=== PATIENT | male | born 1995 | race African-American/Black ===

== ENCOUNTER 2021-09-25 19:02 | Inpatient (IN) | payer SELFPAY ==
[2021-09-25] MEDS ORDERED: Vancomycin 1 GM/200 ML BAG ONE (19:21)
[2021-09-25] MEDS ORDERED: Acetaminophen 500 MG TAB ONE (19:21)
[2021-09-25] MEDS ORDERED: Piperacillin/Tazobactam 3.375 GM VIAL ONE (19:21)
[2021-09-25] MEDS ORDERED: Morphine 4 MG/ML VIAL ONE (19:23)
[2021-09-25 20:01] LABS: Hemoglobin 9.5 g/dL (14.0-18.0); Mean Corpuscular HGB CONC 30.9 g/dL (32.0-36.0); Mean Corpuscular Hemoglobin 22.5 pg (27.0-31.0); Mean Corpuscular Volume 72.7 fL (78.0-98.0); Mean Platelet Volume 5.7 fL (7.4-10.4); Platelet Count 887 thou/uL (130-400); Red Blood Cell (RBC) Count 4.24 mill/uL (4.70-6.10); White Blood Cell (WBC) Count 17.5 thou/uL (4.8-10.8)
[2021-09-25 20:02] LABS: Bilirubin Negative (Negative); Blood, Urine Negative (Negative); Clarity Clear (Clear); Glucose, Urine (Dipstick) Normal (Negative); Ketone, Urine Negative (Negative); Leukocyte Negative Leu/uL (Negative); Nitrite Negative (Negative); Protein, Urine (Dipstick) Negative (Neg-Trace); Specific Gravity, Urine 1.011 (1.002-1.036); Urobilinogen Normal mg/dL (Less than 2)
[2021-09-25 20:11] LABS: Amphetamine Not Detected (NotDetected); Barbiturates Screen Not Detected (NotDetected); Benzodiazepine Screen Not Detected (NotDetected); Cocaine Metabolite Screen Not Detected (NotDetected); Methadone Not Detected (NotDetected); Methamphetamine Not Detected (NotDetected); Opiate Screen Detected (NotDetected); Oxycodone Screen Not Detected (NotDetected); Phencyclidine (PCP) Not Detected (NotDetected); THC/Cannabinoid Screen Not Detected (NotDetected); Tricyclic Screen Not Detected (NotDetected)
[2021-09-25 20:13] LABS: #Eosinphils 0.4 thou/uL (0.0-0.7); #Lymphocytes 1.8 thou/uL (1.20-3.40); #Monocytes 1.3 thou/uL (0.11-0.59); %Basophils 0.1 % (0.0-1.0); %Lymphocytes 10.4 % (21.0-51.0); %Monocytes 7.3 % (0.0-10.0); %Neutrophils 80.2 % (42.0-75.0); MDiff Complete? YES; Microcytosis SLIGHT = 6-15 cells (100X) (0-5/hpf); Platelet Morphology Comment Appears Increased; Target Cells SLIGHT = 2-5 cells (100X) (0-1/hpf)
[2021-09-25 20:21] LABS: ALT (SGPT) 10 U/L (8-55); AST (SGOT) 18 U/L (5-34); Alkaline Phosphatase 138 U/L (40-110); Anion Gap 15 mmol/L (10-20); BUN (Urea Nitrogen) 6 mg/dL (8.9-20.6); Bilirubin, Total 0.3 mg/dL (0.2-1.2); Calc. Creatinine Clearance 0 mL/min (70-130); Calcium 9.2 mg/dL (7.8-10.44); Carbon Dioxide 26 mmol/L (22-29); Chloride 97 mmol/L (98-107); Glucose 83 mg/dL (70-105); Potassium 3.8 mmol/L (3.5-5.1); Sodium 134 mmol/L (136-145)
[2021-09-25] MEDS ORDERED: Acetaminophen 325 MG TAB PO PRN (23:30)
[2021-09-25] MEDS ORDERED: Ondansetron ODT 4 MG TAB SL PRN (23:30)
[2021-09-25] MEDS ORDERED: Ondansetron PF 4 MG/2 ML Vial IVP PRN (23:30)
[2021-09-25 23:45] VITALS: BMI 19.1
[2021-09-26] MEDS: Piperacillin/Tazobactam 3.375 GM in Sodium Chloride 0.9% 100 ML IVPB SCH ×3 (00:54→17:18)
[2021-09-26] MEDS: HYDROcodone/Acetaminophen 7.5/325 mg Tablet PO PRN ×4 (00:54→20:24)
[2021-09-26] MEDS: Senokot S 8.6-50 MG TAB PO PRN (01:03)
[2021-09-26] MEDS ORDERED: Vancomycin 1 GM in Premix Bag 1 BAG IVPB SCH (04:00)
[2021-09-26] MEDS ORDERED: Ondansetron PF 4 MG/2 ML Vial IVP PRN (04:39)
[2021-09-26] MEDS ORDERED: Acetaminophen 325 MG TAB PO PRN (04:39)
[2021-09-26] MEDS: Vancomycin 1 GM in Premix Bag 1 BAG IVPB SCH ×3 (05:00→20:27)
[2021-09-26] MEDS: Sodium Chloride 0.9% 1,000 ML IV SCH (05:05)
[2021-09-26 05:35] LABS: #Basophils 0.1 thou/uL (0.0-0.2); #Eosinphils 0.6 thou/uL (0.0-0.7); #Lymphocytes 1.9 thou/uL (1.20-3.40); #Monocytes 1.2 thou/uL (0.11-0.59); #Neutrophils 11.8 thou/uL (1.40-6.50); %Basophils 0.4 % (0.0-1.0); %Eosinophils 3.6 % (0.0-10.0); %Lymphocytes 12.3 % (21.0-51.0); %Monocytes 7.6 % (0.0-10.0); %Neutrophils 76.1 % (42.0-75.0); Hemoglobin 8.4 g/dL (14.0-18.0); Mean Corpuscular HGB CONC 29.9 g/dL (32.0-36.0); Mean Corpuscular Volume 73.4 fL (78.0-98.0); Mean Platelet Volume 5.7 fL (7.4-10.4); Platelet Count 794 thou/uL (130-400); Red Blood Cell (RBC) Count 3.84 mill/uL (4.70-6.10); White Blood Cell (WBC) Count 15.6 thou/uL (4.8-10.8)
[2021-09-26 05:52] LABS: Iron 14 ug/dL (65-175); Iron Binding Capacity, Total 145 mcg/dL (261-462)
[2021-09-26 06:04] LABS: Anion Gap 13 mmol/L (10-20); BUN (Urea Nitrogen) 6 mg/dL (8.9-20.6); Calc. Creatinine Clearance 132 mL/min (70-130); Calcium 8.7 mg/dL (7.8-10.44); Carbon Dioxide 22 mmol/L (22-29); Chloride 103 mmol/L (98-107); Glucose 102 mg/dL (70-105); Iron 9 ug/dL (65-175); Iron Binding Capacity, Total 141 mcg/dL (261-462); Potassium 3.9 mmol/L (3.5-5.1); Sodium 134 mmol/L (136-145)
[2021-09-26] MEDS: Morphine 4 MG/ML VIAL SLOW IVP PRN ×2 (07:37→17:28)
[2021-09-26] MEDS: Enoxaparin Sodium 40 MG/0.4 ML SYRINGE SC SCH ×2 (09:28→17:18)
[2021-09-26] MEDS ORDERED: Morphine 4 MG/ML VIAL SLOW IVP SCH (11:45)
[2021-09-26 11:51] LABS: SARS-CoV-2 PCR by NAA Not Detected (NotDetected)
[2021-09-26 20:19] LABS: Vancomycin, Trough 16.3 ug/mL
[2021-09-27] MEDS: Senokot S 8.6-50 MG TAB PO PRN ×2 (00:31→21:25)
[2021-09-27] MEDS: HYDROcodone/Acetaminophen 7.5/325 mg Tablet PO PRN ×2 (00:31→06:22)
[2021-09-27] MEDS: Piperacillin/Tazobactam 3.375 GM in Sodium Chloride 0.9% 100 ML IVPB SCH ×3 (00:33→18:14)
[2021-09-27] MEDS: Vancomycin 1 GM in Premix Bag 1 BAG IVPB SCH ×4 (06:12→21:23)
[2021-09-27 06:21] LABS: #Eosinphils 0.6 thou/uL (0.0-0.7); #Lymphocytes 2.2 thou/uL (1.20-3.40); #Monocytes 1.1 thou/uL (0.11-0.59); #Neutrophils 11.3 thou/uL (1.40-6.50); %Basophils 0.1 % (0.0-1.0); %Eosinophils 3.7 % (0.0-10.0); %Lymphocytes 14.4 % (21.0-51.0); %Neutrophils 74.9 % (42.0-75.0); Hemoglobin 7.6 g/dL (14.0-18.0); Mean Corpuscular HGB CONC 30.2 g/dL (32.0-36.0); Mean Corpuscular Hemoglobin 22.5 pg (27.0-31.0); Mean Corpuscular Volume 74.4 fL (78.0-98.0); Mean Platelet Volume 5.7 fL (7.4-10.4); Platelet Count 767 thou/uL (130-400); RBC Distribution Width 16.8 % (11.5-14.5); Red Blood Cell (RBC) Count 3.37 mill/uL (4.70-6.10); White Blood Cell (WBC) Count 15.1 thou/uL (4.8-10.8)
[2021-09-27] MEDS: Sodium Chloride 0.9% 1,000 ML IV SCH ×3 (06:25→21:23)
[2021-09-27 06:37] LABS: Anion Gap 11 mmol/L (10-20); BUN (Urea Nitrogen) 4 mg/dL (8.9-20.6); Calc. Creatinine Clearance 122 mL/min (70-130); Calcium 8.4 mg/dL (7.8-10.44); Carbon Dioxide 26 mmol/L (22-29); Chloride 101 mmol/L (98-107); Glucose 183 mg/dL (70-105); Potassium 3.2 mmol/L (3.5-5.1); Sodium 135 mmol/L (136-145)
[2021-09-27 10:09] LABS: Vancomycin, Trough 34.3 ug/mL
[2021-09-27] MEDS ORDERED: hydrALAZINE 20 MG/ML VIAL SLOW IVP PRN (11:42)
[2021-09-27] MEDS ORDERED: Calcium Carbonate 500 MG ChewTAB PO PRN (11:42)
[2021-09-27] MEDS ORDERED: GUAIFENESIN SF SOLN 200 MG/10 ML UDCUP PO PRN (11:42)
[2021-09-27] MEDS ORDERED: Zolpidem Tartrate 5 MG TAB PO PRN (11:42)
[2021-09-27] MEDS ORDERED: Loperamide HCl 2 MG CAP PO PRN (11:42)
[2021-09-27] MEDS ORDERED: Loratadine 10 MG TAB PO PRN (11:42)
[2021-09-27] MEDS: HYDROcodone/Acetaminophen 5/325 mg Tablet PO PRN ×2 (12:05→19:21)
[2021-09-27] MEDS: Morphine 4 MG/ML VIAL SLOW IVP PRN ×2 (12:11→17:15)
[2021-09-27] MEDS ORDERED: Piperacillin/Tazobactam 3.375 GM in Sodium Chloride 0.9% 100 ML IVPB SCH (17:15)
[2021-09-27] MEDS: Enoxaparin Sodium 40 MG/0.4 ML SYRINGE SC SCH (17:19)
[2021-09-27 20:54] LABS: Vancomycin, Trough 19.8 ug/mL
[2021-09-28] MEDS: HYDROcodone/Acetaminophen 10/325 mg Tablet PO PRN ×4 (00:25→18:23)
[2021-09-28] MEDS: Piperacillin/Tazobactam 3.375 GM in Sodium Chloride 0.9% 100 ML IVPB SCH ×3 (00:27→18:08)
[2021-09-28] MEDS: Vancomycin 1 GM in Premix Bag 1 BAG IVPB SCH ×3 (05:19→21:52)
[2021-09-28] MEDS: Morphine 4 MG/ML VIAL SLOW IVP PRN (15:28)
[2021-09-28] MEDS: Enoxaparin Sodium 40 MG/0.4 ML SYRINGE SC SCH (18:14)
[2021-09-28] MEDS: Senokot S 8.6-50 MG TAB PO PRN (18:23)
[2021-09-28 20:16] LABS: #Eosinphils 0.7 thou/uL (0.0-0.7); #Lymphocytes 2.2 thou/uL (1.20-3.40); #Monocytes 0.8 thou/uL (0.11-0.59); %Basophils 0.3 % (0.0-1.0); %Eosinophils 4.3 % (0.0-10.0); %Lymphocytes 14.1 % (21.0-51.0); %Monocytes 4.9 % (0.0-10.0); %Neutrophils 76.4 % (42.0-75.0); Hemoglobin 8.1 g/dL (14.0-18.0); Mean Corpuscular HGB CONC 29.3 g/dL (32.0-36.0); Mean Corpuscular Hemoglobin 22.3 pg (27.0-31.0); Mean Corpuscular Volume 76.1 fL (78.0-98.0); Mean Platelet Volume 5.4 fL (7.4-10.4); Platelet Count 814 thou/uL (130-400); Red Blood Cell (RBC) Count 3.63 mill/uL (4.70-6.10); White Blood Cell (WBC) Count 15.7 thou/uL (4.8-10.8)
[2021-09-28 20:34] LABS: Anion Gap 12 mmol/L (10-20); BUN (Urea Nitrogen) 5 mg/dL (8.9-20.6); CRP (Inflammatory) 18.84 mg/dL (= or < 0.5); Calc. Creatinine Clearance 110 mL/min (70-130); Carbon Dioxide 27 mmol/L (22-29); Chloride 102 mmol/L (98-107); Glucose 114 mg/dL (70-105); Potassium 3.5 mmol/L (3.5-5.1); Sodium 137 mmol/L (136-145)
[2021-09-29] MEDS: Piperacillin/Tazobactam 3.375 GM in Sodium Chloride 0.9% 100 ML IVPB SCH ×4 (00:50→23:59)
[2021-09-29 05:27] LABS: Anion Gap 11 mmol/L (10-20); BUN (Urea Nitrogen) 5 mg/dL (8.9-20.6); Calc. Creatinine Clearance 126 mL/min (70-130); Calcium 8.6 mg/dL (7.8-10.44); Carbon Dioxide 26 mmol/L (22-29); Chloride 103 mmol/L (98-107); Glucose 125 mg/dL (70-105); Potassium 3.4 mmol/L (3.5-5.1); Sodium 137 mmol/L (136-145)
[2021-09-29 05:29] LABS: Vancomycin, Random 16.2 ug/mL (See Comment)
[2021-09-29] MEDS: Vancomycin 1 GM in Premix Bag 1 BAG IVPB SCH ×3 (05:56→20:16)
[2021-09-29 06:49] LABS: #Eosinphils 0.7 thou/uL (0.0-0.7); #Lymphocytes 2.1 thou/uL (1.20-3.40); %Basophils 0.2 % (0.0-1.0); %Eosinophils 4.6 % (0.0-10.0); %Lymphocytes 13.1 % (21.0-51.0); %Monocytes 6.3 % (0.0-10.0); %Neutrophils 75.9 % (42.0-75.0); Hemoglobin 7.9 g/dL (14.0-18.0); Mean Corpuscular HGB CONC 28.8 g/dL (32.0-36.0); Mean Corpuscular Volume 76.3 fL (78.0-98.0); Mean Platelet Volume 5.5 fL (7.4-10.4); Platelet Count 812 thou/uL (130-400); RBC Distribution Width 17.3 % (11.5-14.5); Red Blood Cell (RBC) Count 3.59 mill/uL (4.70-6.10); White Blood Cell (WBC) Count 15.8 thou/uL (4.8-10.8)
[2021-09-29] MEDS ORDERED: Potassium Chloride 20 MEQ TAB PO SCH (07:30)
[2021-09-29 07:58] LABS: MDiff Complete? YES; Microcytosis SLIGHT = 6-15 cells (100X) (0-5/hpf); Platelet Morphology Comment Appears Increased; Polychromasia SLIGHT = 2-3 cells (100X) (0-2/hpf)
[2021-09-29] MEDS: HYDROcodone/Acetaminophen 10/325 mg Tablet PO PRN (12:40)
[2021-09-29] MEDS: Senokot S 8.6-50 MG TAB PO PRN ×2 (12:41→20:23)
[2021-09-29 14:15] LABS: Cytoplasmic (C-ANCA) <1:20 titer (Neg:<1:20); Myeloperoxidase AutoAbs <9.0 U/mL (0.0-9.0); Perinuclear (P-ANCA) <1:20 titer (Neg:<1:20); Proteinase-3 AutoAbs Less than 3.5 U/mL (0.0-3.5)
[2021-09-29] MEDS: HYDROcodone/Acetaminophen 5/325 mg Tablet PO PRN (16:14)
[2021-09-29] MEDS: Enoxaparin Sodium 40 MG/0.4 ML SYRINGE SC SCH (16:31)
[2021-09-30 04:31] LABS: Vancomycin, Trough 14.4 ug/mL
[2021-09-30] MEDS: Vancomycin 1 GM in Premix Bag 1 BAG IVPB SCH (05:59)
[2021-09-30] MEDS: metroNIDAZOLE 500 MG TAB PO SCH ×3 (09:11→21:41)
[2021-09-30] MEDS: Saccharomyces boulardii 250 MG CAP PO SCH (09:11)
[2021-09-30] MEDS: Clindamycin/D5W 600 MG in Premix Bag 1 BAG IVPB SCH ×2 (14:12→21:41)
[2021-09-30] MEDS: Morphine 4 MG/ML VIAL SLOW IVP PRN (14:16)
[2021-09-30] MEDS: Enoxaparin Sodium 40 MG/0.4 ML SYRINGE SC SCH (16:21)
[2021-09-30] MEDS: Senokot S 8.6-50 MG TAB PO PRN (21:46)
[2021-10-01] MEDS: Clindamycin/D5W 600 MG in Premix Bag 1 BAG IVPB SCH (05:30)
[2021-10-01] MEDS ORDERED: Potassium Chloride 20 MEQ TAB PO SCH (05:45)
[2021-10-01 05:52] LABS: Anion Gap 8 mmol/L (10-20); BUN (Urea Nitrogen) 5 mg/dL (8.9-20.6); CRP (Inflammatory) 14.02 mg/dL (= or < 0.5); Calc. Creatinine Clearance 136 mL/min (70-130); Calcium 9.2 mg/dL (7.8-10.44); Carbon Dioxide 35 mmol/L (22-29); Chloride 98 mmol/L (98-107); Glucose 99 mg/dL (70-105); Potassium 3.8 mmol/L (3.5-5.1); Sodium 137 mmol/L (136-145)
[2021-10-01 07:00] LABS: #Basophils 0.1 thou/uL (0.0-0.2); #Eosinphils 0.6 thou/uL (0.0-0.7); #Neutrophils 9.6 thou/uL (1.40-6.50); %Basophils 0.4 % (0.0-1.0); %Eosinophils 4.4 % (0.0-10.0); %Lymphocytes 15.3 % (21.0-51.0); %Monocytes 7.4 % (0.0-10.0); %Neutrophils 72.5 % (42.0-75.0); Hemoglobin 8.7 g/dL (14.0-18.0); Mean Corpuscular HGB CONC 29.8 g/dL (32.0-36.0); Mean Corpuscular Hemoglobin 22.7 pg (27.0-31.0); Mean Corpuscular Volume 76.3 fL (78.0-98.0); Mean Platelet Volume 5.5 fL (7.4-10.4); Platelet Count 891 thou/uL (130-400); RBC Distribution Width 17.5 % (11.5-14.5); Red Blood Cell (RBC) Count 3.82 mill/uL (4.70-6.10); White Blood Cell (WBC) Count 13.3 thou/uL (4.8-10.8)
[2021-10-01 09:31] VITALS: BP 95/59; TEMP 98.3
[2021-10-01] MEDS: Saccharomyces boulardii 250 MG CAP PO SCH (09:35)
[2021-10-01] MEDS: metroNIDAZOLE 500 MG TAB PO SCH (09:35)
== END 2021-10-01 13:28 | disposition home or self-care (01) | DRG 872 ==
LOC: ERS 19:02 → MSONC 21:07
PROVIDERS: ADMIT Internal Medicine; ATTEND Internal Medicine
DX: A41.9 Sepsis, unspecified organism (principal); D50.9 Iron deficiency anemia, unspecified; Z20.822 Contact with and (suspected) exposure to COVID-19; L98.9 Disorder of the skin and subcutaneous tissue, unspecified; F17.210 Nicotine dependence, cigarettes, uncomplicated; L98.499 Non-pressure chronic ulcer of skin of other sites with unspecified severity; L73.2 Hidradenitis suppurativa; E87.6 Hypokalemia; Z90.89 Acquired absence of other organs
CPT/HCPCS: 36415; 72193; 80048; 80053; 80202; 80306; 81003; 82728; 83520; 83540; 83550; 83605; 85025; 86037; 86140; 87040; 87070; 87205; 96365; 96375; J1650; J2270; J2543; J3370; J3490; J7050; U0003; U0005

== ENCOUNTER 2022-02-24 18:02 | Emergency (ER) | payer BC, OTHER ==
[2022-02-24] MEDS ORDERED: HYDROcodone/Acetaminophen 5/325 mg Tablet ONE (18:56)
== END 2022-02-24 19:36 | disposition home or self-care (01) ==
LOC: ERS 18:02
DX: L73.2 Hidradenitis suppurativa (principal); F17.210 Nicotine dependence, cigarettes, uncomplicated
CPT/HCPCS: 99283

== ENCOUNTER 2022-03-09 16:11 | Inpatient (IN) | payer OTHER ==
[~2022-03-09 16:11] MED LIST: Iopamidol-370 76% 500 ML 1 ML ONE
[2022-03-09] MEDS ORDERED: GoLYTELY 4,000 ml Bottle PO SCH (17:15)
[2022-03-09 17:57] LABS: #Eosinphils 0.2 thou/uL (0.0-0.7); #Lymphocytes 1.8 thou/uL (1.20-3.40); #Monocytes 0.8 thou/uL (0.11-0.59); #Neutrophils 9.6 thou/uL (1.40-6.50); %Basophils 0.1 % (0.0-1.0); %Lymphocytes 14.3 % (21.0-51.0); %Monocytes 6.6 % (0.0-10.0); Hemoglobin 9.8 g/dL (14.0-18.0); Mean Corpuscular HGB CONC 29.4 g/dL (32.0-36.0); Mean Corpuscular Hemoglobin 21.6 pg (27.0-31.0); Mean Corpuscular Volume 73.4 fL (78.0-98.0); Platelet Count 833 thou/uL (130-400); RBC Distribution Width 16.8 % (11.5-14.5); Red Blood Cell (RBC) Count 4.54 mill/uL (4.70-6.10); White Blood Cell (WBC) Count 12.5 thou/uL (4.8-10.8)
[2022-03-09 18:13] LABS: Anisocytosis SLIGHT = 6-15 cells (100X) (0-5/hpf); Hypochromia SLIGHT = 6-15 cells (100X) (0-5/hpf); MDiff Complete? YES; Microcytosis SLIGHT = 6-15 cells (100X) (0-5/hpf); Platelet Morphology Comment Appears Increased; Polychromasia SLIGHT = 2-3 cells (100X) (0-2/hpf); Target Cells SLIGHT = 2-5 cells (100X) (0-1/hpf)
[2022-03-09 18:16] LABS: ALT (SGPT) Less than 7 U/L (8-55); AST (SGOT) 10 U/L (5-34); Alkaline Phosphatase 103 U/L (40-110); Anion Gap 16 mmol/L (10-20); BUN (Urea Nitrogen) 5 mg/dL (8.9-20.6); Bilirubin, Total 0.2 mg/dL (0.2-1.2); Calc. Creatinine Clearance 0 mL/min (70-130); Calcium 9.1 mg/dL (7.8-10.44); Carbon Dioxide 23 mmol/L (22-29); Chloride 100 mmol/L (98-107); Estimated GFR 131; Globulin 5.1 g/dL (2.4-3.5); Glucose 88 mg/dL (70-105); Lipase 4 U/L (8-78); Potassium 4.3 mmol/L (3.5-5.1); Protein, Total 8.1 g/dL (6.0-8.3); Sodium 135 mmol/L (136-145)
[2022-03-09 20:58] LABS: Bilirubin Negative (Negative); Blood, Urine Negative (Negative); Clarity Clear (Clear); Glucose, Urine (Dipstick) Normal (Negative); Ketone, Urine Negative (Negative); Leukocyte Negative Leu/uL (Negative); Nitrite Negative (Negative); Protein, Urine (Dipstick) Negative (Neg-Trace); Specific Gravity, Urine 1.021 (1.002-1.036); Urobilinogen Normal mg/dL (Less than 2); pH, Urine 7.5 (5.0-9.0)
[2022-03-09] MEDS ORDERED: Piperacillin/Tazobactam 3.375 GM in Sodium Chloride 0.9% 100 ML IVPB SCH ×2 (21:00→23:00)
[2022-03-09] MEDS ORDERED: Vancomycin 1.5 GRAM/300 ML BAG 1.5 GM in Premix Bag 1 BAG IVPB SCH (21:00)
[2022-03-09 21:06] LABS: Amphetamine Not Detected (NotDetected); Barbiturates Screen Not Detected (NotDetected); Benzodiazepine Screen Not Detected (NotDetected); Cocaine Metabolite Screen Not Detected (NotDetected); Methadone Not Detected (NotDetected); Methamphetamine Not Detected (NotDetected); Opiate Screen Not Detected (NotDetected); Oxycodone Screen Not Detected (NotDetected); Phencyclidine (PCP) Not Detected (NotDetected); THC/Cannabinoid Screen Not Detected (NotDetected); Tricyclic Screen Not Detected (NotDetected)
[2022-03-09 23:36] LABS: HIV (1/2) Antibody/Antigen Non-Reactive (NonReactive); HIV 1/2 INDEX 0.25 S/CO (<1.00)
[2022-03-09 23:58] VITALS: BMI 17.5
[2022-03-10] MEDS: Lactated Ringer's 1,000 ML IV SCH ×4 (00:03→21:42)
[2022-03-10 00:39] LABS: Iron Binding Capacity, Total 183 mcg/dL (261-462)
[2022-03-10 00:40] LABS: Iron 15 ug/dL (65-175)
[2022-03-10] MEDS ORDERED: VANCOMYCIN 1.25 GM/250 ML BAG 1.25 GM in Premix Bag 1 BAG IVPB SCH (01:00)
[2022-03-10] MEDS: Piperacillin/Tazobactam 3.375 GM in Sodium Chloride 0.9% 100 ML IVPB SCH ×3 (04:47→21:39)
[2022-03-10] MEDS ORDERED: Vancomycin HCl 750 MG in Sodium Chloride 0.9% 250 ML 250 ML IVPB SCH (06:00)
[2022-03-10 07:07] LABS: #Basophils 0.1 thou/uL (0.0-0.2); #Eosinphils 0.4 thou/uL (0.0-0.7); #Lymphocytes 2.1 thou/uL (1.20-3.40); #Monocytes 0.8 thou/uL (0.11-0.59); #Neutrophils 9.6 thou/uL (1.40-6.50); %Basophils 0.4 % (0.0-1.0); %Eosinophils 3.1 % (0.0-10.0); %Lymphocytes 16.1 % (21.0-51.0); %Neutrophils 74.4 % (42.0-75.0); Hemoglobin 9.1 g/dL (14.0-18.0); Mean Corpuscular HGB CONC 30.1 g/dL (32.0-36.0); Mean Corpuscular Hemoglobin 22.1 pg (27.0-31.0); Mean Corpuscular Volume 73.4 fL (78.0-98.0); Mean Platelet Volume 5.9 fL (7.4-10.4); Platelet Count 865 thou/uL (130-400); RBC Distribution Width 16.7 % (11.5-14.5); Red Blood Cell (RBC) Count 4.09 mill/uL (4.70-6.10); White Blood Cell (WBC) Count 12.9 thou/uL (4.8-10.8)
[2022-03-10 07:28] LABS: Anion Gap 14 mmol/L (10-20); BUN (Urea Nitrogen) 4 mg/dL (8.9-20.6); Calc. Creatinine Clearance 119 mL/min (70-130); Carbon Dioxide 22 mmol/L (22-29); Chloride 100 mmol/L (98-107); Estimated GFR 131; Glucose 86 mg/dL (70-105); Potassium 3.9 mmol/L (3.5-5.1); Sodium 132 mmol/L (136-145)
[2022-03-10] MEDS: Vancomycin HCl 750 MG in Sodium Chloride 0.9% 250 ML 250 ML IVPB SCH ×2 (08:58→17:24)
[2022-03-10] MEDS ORDERED: Enoxaparin Sodium 40 MG/0.4 ML SYRINGE SC SCH (09:00)
[2022-03-10] MEDS ORDERED: GoLYTELY 4,000 ml Bottle PO SCH (14:15)
[2022-03-11 01:23] LABS: Vancomycin, Trough 13.8 ug/mL
[2022-03-11] MEDS: Vancomycin HCl 750 MG in Sodium Chloride 0.9% 250 ML 250 ML IVPB SCH ×3 (02:26→17:56)
[2022-03-11] MEDS: Lactated Ringer's 1,000 ML IV SCH ×2 (03:16→13:29)
[2022-03-11] MEDS: Piperacillin/Tazobactam 3.375 GM in Sodium Chloride 0.9% 100 ML IVPB SCH ×3 (05:47→21:19)
[2022-03-11] MEDS ORDERED: Lidocaine 1% PF 5 ML VIAL ONE (08:22)
[2022-03-11] MEDS ORDERED: ePHEDrine 50 MG/ML VIAL ONE (08:22)
[2022-03-11] MEDS ORDERED: Phenylephrine 10 MG/ML VIAL ONE ×2 (08:22)
[2022-03-11] MEDS ORDERED: PROPOFOL 200 MG/20 ML VIAL ONE (08:22)
[2022-03-11] MEDS ORDERED: Fleet Enema 133 ML BOT PR SCH (08:45)
[2022-03-11] MEDS ORDERED: Ondansetron HCl/PF 4 MG/2 ML Vial IVP PRN (09:10)
[2022-03-11] MEDS ORDERED: Promethazine HCl 25 MG/ML VIAL IVPB PRN (09:10)
[2022-03-11] MEDS ORDERED: Promethazine HCl 25 MG/ML VIAL IM PRN (09:10)
[2022-03-11] MEDS ORDERED: Ketorolac Tromethamine 30 MG/ML VIAL IVP PRN (09:57)
[2022-03-11] MEDS ORDERED: HYDROcodone/Acetaminophen 5/325 mg Tablet PO SCH (10:00)
[2022-03-11] MEDS ORDERED: Acetaminophen 325 MG TAB PO PRN (10:31)
[2022-03-11 11:10] LABS: #Eosinphils 0.3 thou/uL (0.0-0.7); #Lymphocytes 1.7 thou/uL (1.20-3.40); #Monocytes 0.5 thou/uL (0.11-0.59); #Neutrophils 9.3 thou/uL (1.40-6.50); %Basophils 0.2 % (0.0-1.0); %Eosinophils 2.6 % (0.0-10.0); %Lymphocytes 14.3 % (21.0-51.0); %Monocytes 4.6 % (0.0-10.0); %Neutrophils 78.3 % (42.0-75.0); Hemoglobin 9.6 g/dL (14.0-18.0); Mean Corpuscular HGB CONC 29.5 g/dL (32.0-36.0); Mean Corpuscular Volume 74.4 fL (78.0-98.0); Mean Platelet Volume 6.1 fL (7.4-10.4); Platelet Count 839 thou/uL (130-400); Red Blood Cell (RBC) Count 4.36 mill/uL (4.70-6.10); White Blood Cell (WBC) Count 11.8 thou/uL (4.8-10.8)
[2022-03-11 11:15] LABS: Anion Gap 12 mmol/L (10-20); BUN (Urea Nitrogen) Less than 4 mg/dL (8.9-20.6); Calc. Creatinine Clearance 111 mL/min (70-130); Calcium 8.6 mg/dL (7.8-10.44); Carbon Dioxide 27 mmol/L (22-29); Chloride 100 mmol/L (98-107); Estimated GFR 128; Glucose 106 mg/dL (70-105); Potassium 3.3 mmol/L (3.5-5.1); Sodium 136 mmol/L (136-145)
[2022-03-11 11:33] LABS: Hep B Core Total Ab Non-Reactive (NonReactive); Hep B Surf Ag Non-Reactive S/CO (NonReactive)
[2022-03-11 11:44] LABS: HBSAB Concentration 12.46 mIU/mL; Hep B Surf AB Reactive (NonReactive)
[2022-03-11] MEDS ORDERED: Enoxaparin Sodium 40 MG/0.4 ML SYRINGE SC SCH (21:00)
[2022-03-11] MEDS: Senokot S 8.6-50 MG TAB PO SCH (21:19)
[2022-03-12] MEDS: Vancomycin HCl 750 MG in Sodium Chloride 0.9% 250 ML 250 ML IVPB SCH ×2 (02:27→10:58)
[2022-03-12] MEDS: Lactated Ringer's 1,000 ML IV SCH ×2 (02:30→11:05)
[2022-03-12] MEDS: Piperacillin/Tazobactam 3.375 GM in Sodium Chloride 0.9% 100 ML IVPB SCH (04:47)
[2022-03-12 06:46] LABS: #Eosinphils 0.4 thou/uL (0.0-0.7); #Monocytes 0.9 thou/uL (0.11-0.59); #Neutrophils 10.1 thou/uL (1.40-6.50); %Basophils 0.2 % (0.0-1.0); %Eosinophils 3.2 % (0.0-10.0); %Lymphocytes 14.5 % (21.0-51.0); %Neutrophils 75.1 % (42.0-75.0); Hemoglobin 8.3 g/dL (14.0-18.0); Mean Corpuscular HGB CONC 29.1 g/dL (32.0-36.0); Mean Corpuscular Hemoglobin 21.6 pg (27.0-31.0); Mean Corpuscular Volume 74.3 fL (78.0-98.0); Mean Platelet Volume 5.8 fL (7.4-10.4); Platelet Count 718 thou/uL (130-400); RBC Distribution Width 16.7 % (11.5-14.5); Red Blood Cell (RBC) Count 3.85 mill/uL (4.70-6.10); White Blood Cell (WBC) Count 13.5 thou/uL (4.8-10.8)
[2022-03-12 06:47] LABS: Anion Gap 12 mmol/L (10-20); BUN (Urea Nitrogen) Less than 4 mg/dL (8.9-20.6); Calc. Creatinine Clearance 121 mL/min (70-130); Calcium 8.1 mg/dL (7.8-10.44); Carbon Dioxide 24 mmol/L (22-29); Chloride 106 mmol/L (98-107); Estimated GFR 132; Glucose 98 mg/dL (70-105); Potassium 3.6 mmol/L (3.5-5.1); Sodium 138 mmol/L (136-145)
[2022-03-12] MEDS: Polyethylene Glycol 3350 17 GM Packet PO SCH ×2 (08:15→11:53)
[2022-03-12] MEDS: Senokot S 8.6-50 MG TAB PO SCH (08:15)
[2022-03-12 08:55] LABS: Hypochromia SLIGHT = 6-15 cells (100X) (0-5/hpf); Microcytosis SLIGHT = 6-15 cells (100X) (0-5/hpf); Polychromasia SLIGHT = 2-3 cells (100X) (0-2/hpf)
[2022-03-12] MEDS ORDERED: Iron, Sodium Ferric Gluconate 250 MG in Sodium Chloride 0.9% 250 ML 250 ML IVPB SCH (14:00)
[2022-03-12] MEDS ORDERED: Iron Sucrose Complex 300 MG in Sodium Chloride 0.9% 250 ML 250 ML IVPB SCH (14:45)
[2022-03-12 17:16] VITALS: BP 115/65; TEMP 98.1
== END 2022-03-12 18:47 | disposition home or self-care (01) | DRG 389 ==
LOC: ERS 16:11 → T4-A 20:02
PROVIDERS: ADMIT Family Medicine; ATTEND Family Medicine
PROC: 3E1H78Z Irrigation of Lower GI using Irrigating Substance, Via Natural or Artificial Opening (ICD-10-PCS; principal; 2022-03-11)
DX: K56.41 Fecal impaction (principal); R64 Cachexia; Z68.1 Body mass index [BMI] 19.9 or less, adult; E44.0 Moderate protein-calorie malnutrition; L73.2 Hidradenitis suppurativa; Z20.822 Contact with and (suspected) exposure to COVID-19; L89.151 Pressure ulcer of sacral region, stage 1; R33.9 Retention of urine, unspecified; F17.210 Nicotine dependence, cigarettes, uncomplicated; D69.6 Thrombocytopenia, unspecified; D50.9 Iron deficiency anemia, unspecified; Z74.01 Bed confinement status
CPT/HCPCS: 36415; 74018; 74177; 80048; 80053; 80202; 80306; 81003; 82728; 83540; 83550; 83605; 83690; 84134; 84145; 85025; 86480; 86704; 86706; 87340; 87389; 97139; J1650; J1756; J2370; J2543; J2704; J3370; J3490; J7050; J7120; Q9967; U0003; U0005

== ENCOUNTER 2022-04-07 12:53 | Emergency (ER) | payer OTHER ==
[2022-04-07 13:38] LABS: #Eosinphils 0.5 thou/uL (0.0-0.7); #Lymphocytes 1.9 thou/uL (1.20-3.40); #Monocytes 0.8 thou/uL (0.11-0.59); #Neutrophils 9.6 thou/uL (1.40-6.50); %Basophils 0.1 % (0.0-1.0); %Eosinophils 4.1 % (0.0-10.0); %Monocytes 5.9 % (0.0-10.0); Hemoglobin 9.7 g/dL (14.0-18.0); Mean Corpuscular HGB CONC 30.4 g/dL (32.0-36.0); Mean Corpuscular Volume 72.2 fL (78.0-98.0); Mean Platelet Volume 6.3 fL (7.4-10.4); Platelet Count 834 thou/uL (130-400); RBC Distribution Width 17.5 % (11.5-14.5); White Blood Cell (WBC) Count 12.7 thou/uL (4.8-10.8)
[2022-04-07 13:56] LABS: ALT (SGPT) 9 U/L (8-55); AST (SGOT) 16 U/L (5-34); Albumin 3.1 g/dL (3.5-5.0); Alkaline Phosphatase 113 U/L (40-110); Anion Gap 16 mmol/L (10-20); BUN (Urea Nitrogen) 4 mg/dL (8.9-20.6); Bilirubin, Total 0.2 mg/dL (0.2-1.2); Calc. Creatinine Clearance 0 mL/min (70-130); Carbon Dioxide 23 mmol/L (22-29); Chloride 102 mmol/L (98-107); Estimated GFR 132; Globulin 5.1 g/dL (2.4-3.5); Glucose 98 mg/dL (70-105); Potassium 3.8 mmol/L (3.5-5.1); Protein, Total 8.2 g/dL (6.0-8.3); Sodium 137 mmol/L (136-145)
== END 2022-04-07 14:27 | disposition home or self-care (01) ==
LOC: ERS 12:53
DX: S31.000A Unspecified open wound of lower back and pelvis without penetration into retroperitoneum, initial encounter (principal); F17.200 Nicotine dependence, unspecified, uncomplicated
CPT/HCPCS: 36415; 80053; 83605; 85025; 87040; 99283

== ENCOUNTER 2022-12-19 11:50 | Outpatient (CLI) | payer OTHER ==
[2022-12-19 13:21] LABS: #Basophils 0.1 10x3/uL (0.0-0.2); #Eosinphils 0.3 10x3/uL (0.0-0.5); #Monocytes 0.8 10x3/uL (0.0-1.1); #Neutrophils 11.3 10x3/uL (1.5-8.4); %Basophils 0.5 % (0.0-2.0); %Eosinophils 1.9 % (0.0-6.0); %Lymphocytes 13.8 % (18.0-47.0); %Monocytes 5.7 % (0.0-10.0); %Neutrophils 77.5 % (40.0-75.0); Hemoglobin 9.2 g/dL (13.5-17.5); Mean Corpuscular HGB CONC 29.2 g/dL (32.0-36.0); Mean Corpuscular Hemoglobin 19.9 pg (27.0-33.0); Mean Corpuscular Volume 68.2 fl (81.2-95.1); Mean Platelet Volume 7.9 fl (7.4-10.4); Platelet Count 915 10x3/uL (150-450); RBC Distribution Width 17.2 % (11.5-14.5); Red Blood Cell (RBC) Count 4.62 10x6/uL (4.32-5.72); White Blood Cell (WBC) Count 14.6 10x3/uL (3.5-10.5)
[2022-12-19 13:44] LABS: ALT (SGPT) Less than 6 U/L (8-55); AST (SGOT) 10 U/L (5-34); Albumin 3.1 g/dL (3.5-5.0); Alkaline Phosphatase 134 U/L (40-110); Anion Gap 15 mmol/L (10-20); BUN (Urea Nitrogen) 6 mg/dL (8.9-20.6); Bilirubin, Total 0.4 mg/dL (0.2-1.2); Calc. Creatinine Clearance 0 mL/min (70-130); Calcium 9.1 mg/dL (7.8-10.44); Carbon Dioxide 25 mmol/L (22-29); Chloride 100 mmol/L (98-107); Estimated GFR 130; Globulin 4.2 g/dL (2.4-3.5); Glucose 99 mg/dL (70-105); Potassium 4.1 mmol/L (3.5-5.1); Protein, Total 7.3 g/dL (6.0-8.3); Sodium 136 mmol/L (136-145)
== END 2022-12-19 11:51 | disposition home or self-care (01) ==
LOC: LABBT 11:50
PROVIDERS: ATTEND Surgery
DX: Z01.812 Encounter for preprocedural laboratory examination (principal); L73.2 Hidradenitis suppurativa
CPT/HCPCS: 80053; 85025

== ENCOUNTER 2022-12-21 06:28 | Inpatient (IN) | payer OTHER ==
[2022-12-19 12:56] VITALS: BMI 17.5
[2022-12-21] MEDS ORDERED: Fentanyl 250 MCG/5 ML VIAL ONE (06:52)
[2022-12-21] MEDS ORDERED: Midazolam HCl 2 mg/2 ml Vial ONE ×2 (06:52→07:40)
[2022-12-21] MEDS ORDERED: Bupivacaine 0.25% HCL 30 ML VIAL ONE (07:01)
[2022-12-21] MEDS ORDERED: Bupivacaine/Epinephrine 0.25% 30 ML VIAL ONE (07:01)
[2022-12-21] MEDS ORDERED: Lidocaine 2% PF 5 ML VIAL ONE (07:01)
[2022-12-21] MEDS ORDERED: Isosulfan Blue 50 MG/5 ML VIAL ONE (07:01)
[2022-12-21] MEDS ORDERED: CEFAZOLIN 2 GM VIAL ONE (07:35)
[2022-12-21] MEDS ORDERED: Sodium Chloride 0.9% 100 ML ONE (07:35)
[2022-12-21] MEDS ORDERED: Lidocaine 1% PF 5 ML VIAL ONE (07:57)
[2022-12-21] MEDS ORDERED: PHENYLEPHRINE-NS 100 MCG/ML 10 ML SYRINGE ONE (07:57)
[2022-12-21] MEDS ORDERED: PROPOFOL 200 MG/20 ML VIAL ONE (07:57)
[2022-12-21] MEDS ORDERED: Dextrose 5% in Water 1,000 ML IV PRN (09:58)
[2022-12-21] MEDS ORDERED: Ipratropium/Albuterol 3 ML NEB NEB PRN (09:58)
[2022-12-21] MEDS ORDERED: hydrALAZINE 20 MG/ML VIAL SLOW IVP PRN (09:58)
[2022-12-21] MEDS ORDERED: Promethazine HCl 25 MG/ML VIAL IM PRN ×3 (09:58→10:45)
[2022-12-21] MEDS ORDERED: Dextrose 50% Abboject 50 ML SYRINGE SLOW IVP PRN (09:58)
[2022-12-21] MEDS ORDERED: Ondansetron PF 4 MG/2 ML Vial IVP PRN ×2 (09:58→10:45)
[2022-12-21] MEDS ORDERED: Ondansetron HCl/PF 4 MG/2 ML Vial IVP PRN (10:06)
[2022-12-21] MEDS ORDERED: HYDROmorphone 0.5 MG/0.5 ML SYRINGE ONE (10:18)
[2022-12-21] MEDS ORDERED: Ketorolac Tromethamine 30 MG/ML VIAL ONE (10:23)
[2022-12-21] MEDS ORDERED: fentaNYL 50 mcg/mL 1 mL Vial ONE ×2 (10:29→10:43)
[2022-12-21] MEDS ORDERED: diphenhydrAMINE 50 MG/ML VIAL IM/IV PRN (10:45)
[2022-12-21] MEDS ORDERED: diphenhydrAMINE 25 MG CAP PO PRN (10:45)
[2022-12-21] MEDS ORDERED: Zolpidem Tartrate 5 MG TAB PO PRN (10:45)
[2022-12-21] MEDS ORDERED: HYDROmorphone/PF 10 MG in Sodium Chloride 0.9% 99 ML IVPB PRN (10:45)
[2022-12-21] MEDS ORDERED: Naloxone HCl 0.4 mg/ml Vial IV PRN (10:45)
[2022-12-21 12:48] LABS: Hemoglobin 8.6 g/dL (14.0-18.0)
[2022-12-21] MEDS: Lactated Ringer's 1,000 ML IV SCH (13:06)
[2022-12-21] MEDS: Ketorolac Tromethamine 30 MG/ML VIAL IVP SCH ×2 (15:11→20:57)
[2022-12-21] MEDS: Famotidine 20 MG TAB PO SCH (20:56)
[2022-12-22] MEDS: Lactated Ringer's 1,000 ML IV SCH ×3 (01:08→21:01)
[2022-12-22] MEDS: Ketorolac Tromethamine 30 MG/ML VIAL IVP SCH ×4 (05:04→20:50)
[2022-12-22 05:41] LABS: #Basophils 0.1 thou/uL (0.0-0.2); #Eosinphils 0.2 thou/uL (0.0-0.7); #Lymphocytes 1.5 thou/uL (1.20-3.40); #Monocytes 0.9 thou/uL (0.11-0.59); #Neutrophils 12.9 thou/uL (1.40-6.50); %Basophils 0.7 % (0.0-1.0); %Eosinophils 1.4 % (0.0-10.0); %Lymphocytes 9.5 % (21.0-51.0); %Neutrophils 82.3 % (42.0-75.0); Mean Corpuscular HGB CONC 32.2 g/dL (32.0-36.0); Mean Corpuscular Hemoglobin 23.3 pg (27.0-31.0); Mean Corpuscular Volume 72.3 fl (78.0-98.0); Mean Platelet Volume 6.4 fL (7.4-10.4); Platelet Count 590 10x3/uL (130-400); RBC Distribution Width 17.1 % (11.5-14.5); Red Blood Cell (RBC) Count 3.02 mill/uL (4.70-6.10); White Blood Cell (WBC) Count 15.7 10x3/uL (4.8-10.8)
[2022-12-22 06:01] LABS: Anion Gap 11 mmol/L (10-20); BUN (Urea Nitrogen) 4 mg/dL (8.9-20.6); Calc. Creatinine Clearance 134 mL/min (70-130); Calcium 7.8 mg/dL (7.8-10.44); Carbon Dioxide 22 mmol/L (22-29); Chloride 104 mmol/L (98-107); Estimated GFR 136; Glucose 89 mg/dL (70-105); Potassium 3.7 mmol/L (3.5-5.1); Sodium 133 mmol/L (136-145)
[2022-12-22] MEDS: HYDROmorphone 0.5 MG/0.5 ML SYRINGE SLOW IVP PRN ×2 (10:47→11:08)
[2022-12-22 12:48] LABS: #Eosinphils 0.2 thou/uL (0.0-0.7); #Lymphocytes 1.4 thou/uL (1.20-3.40); #Monocytes 1.1 thou/uL (0.11-0.59); #Neutrophils 13.5 thou/uL (1.40-6.50); %Basophils 0.2 % (0.0-1.0); %Eosinophils 1.5 % (0.0-10.0); %Lymphocytes 8.6 % (21.0-51.0); %Monocytes 6.8 % (0.0-10.0); %Neutrophils 82.9 % (42.0-75.0); Hemoglobin 9.4 g/dL (14.0-18.0); Mean Corpuscular HGB CONC 33.7 g/dL (32.0-36.0); Mean Corpuscular Hemoglobin 24.9 pg (27.0-31.0); Mean Corpuscular Volume 73.9 fl (78.0-98.0); Mean Platelet Volume 6.3 fL (7.4-10.4); Platelet Count 562 10x3/uL (130-400); RBC Distribution Width 17.5 % (11.5-14.5); Red Blood Cell (RBC) Count 3.79 mill/uL (4.70-6.10); White Blood Cell (WBC) Count 16.3 10x3/uL (4.8-10.8)
[2022-12-22] MEDS ORDERED: Meropenem 1 GM in Sodium Chloride 0.9% 100 ML IVPB SCH (14:00)
[2022-12-22] MEDS: Famotidine 20 MG TAB PO SCH ×2 (14:25→20:53)
[2022-12-22] MEDS: Meropenem 1 GM in Sodium Chloride 0.9% 100 ML IVPB SCH (20:54)
[2022-12-23] MEDS: Ketorolac Tromethamine 30 MG/ML VIAL IVP SCH ×2 (05:08→08:54)
[2022-12-23] MEDS: Meropenem 1 GM in Sodium Chloride 0.9% 100 ML IVPB SCH ×3 (05:11→21:08)
[2022-12-23 06:13] LABS: #Eosinphils 0.5 thou/uL (0.0-0.7); #Lymphocytes 1.7 thou/uL (1.20-3.40); #Monocytes 1.3 thou/uL (0.11-0.59); #Neutrophils 13.8 thou/uL (1.40-6.50); %Basophils 0.1 % (0.0-1.0); %Lymphocytes 9.7 % (21.0-51.0); %Monocytes 7.6 % (0.0-10.0); %Neutrophils 79.6 % (42.0-75.0); Hemoglobin 8.4 g/dL (14.0-18.0); Mean Corpuscular HGB CONC 32.2 g/dL (32.0-36.0); Mean Corpuscular Volume 74.5 fl (78.0-98.0); Mean Platelet Volume 6.4 fL (7.4-10.4); Platelet Count 614 10x3/uL (130-400); RBC Distribution Width 17.8 % (11.5-14.5); White Blood Cell (WBC) Count 17.3 10x3/uL (4.8-10.8)
[2022-12-23 06:31] LABS: Anion Gap 11 mmol/L (10-20); BUN (Urea Nitrogen) Less than 4 mg/dL (8.9-20.6); Calc. Creatinine Clearance 132 mL/min (70-130); Calcium 8.1 mg/dL (7.8-10.44); Carbon Dioxide 25 mmol/L (22-29); Chloride 103 mmol/L (98-107); Estimated GFR 135; Glucose 86 mg/dL (70-105); Potassium 3.9 mmol/L (3.5-5.1); Sodium 135 mmol/L (136-145)
[2022-12-23] MEDS: Famotidine 20 MG TAB PO SCH ×2 (08:53→20:06)
[2022-12-23] MEDS: Lactated Ringer's 1,000 ML IV SCH ×2 (08:59→21:10)
[2022-12-23] MEDS ORDERED: GoLYTELY 4,000 ml Bottle PO SCH (11:30)
[2022-12-23] MEDS: HYDROmorphone/PF 10 MG in Sodium Chloride 0.9% 99 ML IVPB PRN (20:03)
[2022-12-24] MEDS: Meropenem 1 GM in Sodium Chloride 0.9% 100 ML IVPB SCH ×3 (05:57→21:11)
[2022-12-24] MEDS ORDERED: fentaNYL 50 mcg/mL 1 mL Vial ONE ×3 (11:26→14:21)
[2022-12-24] MEDS ORDERED: fentaNYL PF 100 MCG/2 ML SYRINGE ONE ×2 (11:33)
[2022-12-24] MEDS ORDERED: SUGAMMADEX SODIUM 200 MG/2 ML VIAL ONE (11:40)
[2022-12-24] MEDS ORDERED: Ondansetron PF 4 MG/2 ML Vial ONE (11:48)
[2022-12-24] MEDS ORDERED: Lidocaine 1% PF 5 ML VIAL ONE (11:48)
[2022-12-24] MEDS ORDERED: PHENYLEPHRINE-NS 100 MCG/ML 10 ML SYRINGE ONE (11:48)
[2022-12-24] MEDS ORDERED: Rocuronium Bromide 10 MG/ML (10ML VIAL) ONE (11:48)
[2022-12-24] MEDS ORDERED: PROPOFOL 200 MG/20 ML VIAL ONE (11:48)
[2022-12-24] MEDS ORDERED: Bupivacaine/Epinephrine 0.25% 30 ML VIAL ONE (12:12)
[2022-12-24] MEDS ORDERED: Promethazine HCl 25 MG/ML VIAL IM PRN (14:05)
[2022-12-24] MEDS ORDERED: Ondansetron HCl/PF 4 MG/2 ML Vial IVP PRN (14:05)
[2022-12-24] MEDS: Famotidine 20 MG TAB PO SCH ×2 (14:45→21:11)
[2022-12-25] MEDS: Lactated Ringer's 1,000 ML IV SCH ×3 (05:23→21:19)
[2022-12-25] MEDS: Meropenem 1 GM in Sodium Chloride 0.9% 100 ML IVPB SCH ×3 (05:24→21:17)
[2022-12-25] MEDS: Famotidine 20 MG TAB PO SCH ×2 (10:30→20:13)
[2022-12-25] MEDS: Acetaminophen 500 MG TAB PO SCH ×4 (12:34→23:03)
[2022-12-25] MEDS: Ketorolac Tromethamine 30 MG/ML VIAL IVP SCH ×3 (12:34→23:03)
[2022-12-25] MEDS: HYDROmorphone/PF 10 MG in Sodium Chloride 0.9% 99 ML IVPB PRN (14:29)
[2022-12-26] MEDS: Ketorolac Tromethamine 30 MG/ML VIAL IVP SCH ×3 (05:26→17:14)
[2022-12-26] MEDS: Acetaminophen 500 MG TAB PO SCH ×3 (05:26→17:14)
[2022-12-26] MEDS: Meropenem 1 GM in Sodium Chloride 0.9% 100 ML IVPB SCH ×3 (05:40→21:38)
[2022-12-26] MEDS: Famotidine 20 MG TAB PO SCH ×2 (08:15→21:37)
[2022-12-26] MEDS: Lactated Ringer's 1,000 ML IV SCH (17:26)
[2022-12-27] MEDS: HYDROmorphone/PF 10 MG in Sodium Chloride 0.9% 99 ML IVPB PRN (04:52)
[2022-12-27] MEDS: Meropenem 1 GM in Sodium Chloride 0.9% 100 ML IVPB SCH ×3 (04:54→22:09)
[2022-12-27] MEDS: Ketorolac Tromethamine 30 MG/ML VIAL IVP SCH ×5 (04:57→22:10)
[2022-12-27] MEDS: Acetaminophen 500 MG TAB PO SCH ×6 (05:02→22:12)
[2022-12-27] MEDS: Famotidine 20 MG TAB PO SCH ×2 (08:12→22:09)
[2022-12-27] MEDS: Lactated Ringer's 1,000 ML IV SCH (08:14)
[2022-12-27] MEDS: Lidocaine 4% Topical Sol 50 ML BOT TOP PRN (10:37)
[2022-12-27] MEDS: oxyCODONE 5 MG TAB PO PRN (14:13)
[2022-12-28] MEDS: Meropenem 1 GM in Sodium Chloride 0.9% 100 ML IVPB SCH ×3 (05:34→21:12)
[2022-12-28] MEDS: oxyCODONE 5 MG TAB PO PRN ×3 (05:39→21:18)
[2022-12-28] MEDS: Lactated Ringer's 1,000 ML IV SCH ×2 (05:40→21:12)
[2022-12-28] MEDS: Ketorolac Tromethamine 30 MG/ML VIAL IVP SCH ×2 (05:41→12:52)
[2022-12-28] MEDS: Acetaminophen 500 MG TAB PO SCH ×3 (05:41→18:30)
[2022-12-28] MEDS: Famotidine 20 MG TAB PO SCH ×2 (10:03→21:14)
[2022-12-28] MEDS ORDERED: Ibuprofen 600 MG TAB PO PRN (18:00)
[2022-12-29] MEDS: Acetaminophen 500 MG TAB PO SCH ×5 (00:35→21:43)
[2022-12-29] MEDS: Meropenem 1 GM in Sodium Chloride 0.9% 100 ML IVPB SCH ×3 (05:43→21:42)
[2022-12-29] MEDS: oxyCODONE 5 MG TAB PO PRN ×2 (05:43→18:36)
[2022-12-29] MEDS: Lactated Ringer's 1,000 ML IV SCH ×2 (07:39→17:26)
[2022-12-29] MEDS: Famotidine 20 MG TAB PO SCH ×2 (08:12→21:42)
[2022-12-29] MEDS: HYDROmorphone 0.5 MG/0.5 ML SYRINGE SLOW IVP PRN (09:18)
[2022-12-30] MEDS: Meropenem 1 GM in Sodium Chloride 0.9% 100 ML IVPB SCH ×3 (05:25→21:06)
[2022-12-30] MEDS: Acetaminophen 500 MG TAB PO SCH ×3 (05:25→17:38)
[2022-12-30] MEDS: Lactated Ringer's 1,000 ML IV SCH ×2 (05:30→21:07)
[2022-12-30] MEDS: Lidocaine 4% Topical Sol 50 ML BOT TOP PRN (08:35)
[2022-12-30] MEDS: HYDROmorphone 0.5 MG/0.5 ML SYRINGE SLOW IVP PRN (08:44)
[2022-12-30] MEDS: Famotidine 20 MG TAB PO SCH ×2 (10:36→21:05)
[2022-12-30] MEDS: oxyCODONE 5 MG TAB PO PRN ×2 (15:16→21:05)
[2022-12-31] MEDS: Acetaminophen 500 MG TAB PO SCH ×6 (06:04→23:59)
[2022-12-31] MEDS: Meropenem 1 GM in Sodium Chloride 0.9% 100 ML IVPB SCH ×2 (06:27→16:53)
[2022-12-31] MEDS: oxyCODONE 5 MG TAB PO PRN ×3 (06:27→20:47)
[2022-12-31] MEDS: HYDROmorphone 0.5 MG/0.5 ML SYRINGE SLOW IVP PRN (09:16)
[2022-12-31] MEDS: Famotidine 20 MG TAB PO SCH ×2 (09:16→20:47)
[2022-12-31] MEDS: Lidocaine 4% Topical Sol 50 ML BOT TOP PRN (09:16)
[2022-12-31] MEDS: Lactated Ringer's 1,000 ML IV SCH (16:53)
[2023-01-01] MEDS: Acetaminophen 500 MG TAB PO SCH ×2 (05:47→12:02)
[2023-01-01] MEDS: Famotidine 20 MG TAB PO SCH (08:49)
[2023-01-01] MEDS: oxyCODONE 5 MG TAB PO PRN (10:27)
[2023-01-01] MEDS: Lidocaine 4% Topical Sol 50 ML BOT TOP PRN (10:29)
[2023-01-01 12:41] VITALS: BP 114/65; TEMP 99
== END 2023-01-01 12:30 | disposition home or self-care (01) | DRG 581 ==
LOC: SDC 06:28 → SURG A 09:58
PROVIDERS: ADMIT Surgery; ATTEND Surgery
PROC: 0HB9XZZ Excision of Perineum Skin, External Approach (ICD-10-PCS; principal; 2022-12-21)
PROC: 0VB50ZZ Excision of Scrotum, Open Approach (ICD-10-PCS; 2022-12-21)
PROC: 30233N1 Transfusion of Nonautologous Red Blood Cells into Peripheral Vein, Percutaneous Approach (ICD-10-PCS; 2022-12-21)
PROC: 0D1N4Z4 Bypass Sigmoid Colon to Cutaneous, Percutaneous Endoscopic Approach (ICD-10-PCS; 2022-12-24)
DX: L73.2 Hidradenitis suppurativa (principal); Z79.899 Other long term (current) drug therapy; D64.9 Anemia, unspecified
CPT/HCPCS: 36415; 36430; 80048; 80053; 85014; 85018; 85025; 86850; 86900; 86901; 87070; 87077; 87186; 87205; 88305; 97139; J1170; J1885; J2001; J2185; J2250; J2405; J2704; J3010; J3490; J7120; P9016; Q9968; S0020

== ENCOUNTER 2025-07-23 13:58 | Outpatient (CLI) | payer OTHER ==
[2025-07-23 15:00] LABS: #Basophils 0.08 10x3/uL (0.0-0.2); #Eosinophils 0.52 10x3/uL (0.0-0.7); #Monocytes 1.19 10x3/uL (0.11-0.59); #Neutrophils 8.02 10x3/uL (1.40-6.50); %Basophils 0.7 % (0.0-1.0); %Eosinophils 4.3 % (0.0-10.0); %Lymphocytes 19.1 % (21.0-51.0); %Monocytes 9.8 % (0.0-10.0); %Neutrophils 65.8 % (42.0-75.0); Hematocrit 36.5 % (42.0-52.0); Hemoglobin 11.5 g/dL (14.0-18.0); Mean Corpuscular Hemoglobin 22.8 pg (27.0-31.0); Mean Corpuscular Volume 72.3 fL (78.0-98.0); Platelet Count 523 10x3/uL (130-400); Red Blood Cell (RBC) Count 5.05 mill/uL (4.70-6.10); White Blood Cell (WBC) Count 12.17 10x3/uL (4.8-10.8)
== END 2025-07-23 13:59 | disposition home or self-care (01) ==
LOC: LABBT 13:58
PROVIDERS: ATTEND Surgery
DX: Z01.812 Encounter for preprocedural laboratory examination (principal); L02.215 Cutaneous abscess of perineum
CPT/HCPCS: 85025

== ENCOUNTER 2025-07-28 05:41 | Day surgery (SDC) | payer OTHER ==
[2025-07-23 14:20] VITALS: BMI 22.5
[2025-07-28] MEDS ORDERED: Bupivacaine 0.25% HCL 30 ML VIAL ONE (08:15)
[2025-07-28] MEDS ORDERED: HYDROmorphone 2 MG/ML VIAL ONE (08:23)
[2025-07-28] MEDS ORDERED: Lidocaine 2% PF 100 mg/5 ml Syringe ONE (08:23)
[2025-07-28] MEDS ORDERED: Rocuronium Bromide 10 MG/ML (10ML VIAL) ONE (08:50)
[2025-07-28] MEDS ORDERED: PROPOFOL 200 MG/20 ML VIAL ONE (08:50)
[2025-07-28] MEDS ORDERED: PHENYLEPHRINE-NS 100 MCG/ML 10 ML SYRINGE ONE (08:50)
[2025-07-28] MEDS ORDERED: Ondansetron PF 4 MG/2 ML Vial ONE (09:01)
[2025-07-28] MEDS ORDERED: SUGAMMADEX SODIUM 200 MG/2 ML VIAL ONE (09:40)
[2025-07-28] MEDS ORDERED: HYDROmorphone 0.5 MG/0.5 ML SYRINGE ONE ×2 (10:05→10:29)
[2025-07-28] MEDS ORDERED: fentaNYL PF 100 MCG/2 ML SYRINGE ONE (10:17)
[2025-07-28] MEDS ORDERED: HYDROcodone/Acetaminophen 5/325 mg Tablet ONE (12:03)
== END 2025-07-28 12:40 | disposition home or self-care (01) ==
LOC: SDC 05:41
PROVIDERS: ATTEND Surgery
PROC: 0D9Q0ZZ Drainage of Anus, Open Approach (ICD-10-PCS; principal; 2025-07-28)
DX: L02.215 Cutaneous abscess of perineum (principal); L73.2 Hidradenitis suppurativa; F17.200 Nicotine dependence, unspecified, uncomplicated
CPT/HCPCS: 87070; 87077; 87205; J0169; J0665; J0694; J1171; J2003; J2405; J2704